=== PATIENT | female | born 1935 | race Caucasian/White ===

== ENCOUNTER 2020-12-29 20:55 | Inpatient (IN) | payer MEDICARE, OTHER ==
[~2020-12-29] VITALS: Ht 162.6 cm; Wt 72.1 kg
--- NOTE | 2020-12-29 20:57 | NUR ---
DO Steward in room to do MSE.
[2020-12-29] MEDS ORDERED: ONDANSETRON 4 MG/2 ML VIAL IV ONE (21:15)
[2020-12-29] MEDS ORDERED: IV NORMAL SALINE 250 ML BAG IV ONE (21:15)
[2020-12-29] MEDS ORDERED: ONDANSETRON 4 MG/2 ML VIAL ONE (21:32)
[2020-12-29 21:44] LABS: HEMATOCRIT 37.9 % (31.2-41.9); MEAN CORPUSCULAR HEMOGLOBIN 24.5 uug (24.7-32.8); PLATELET COUNT (AUTO) 375 K/uL (179-408)
[2020-12-29 21:58] LABS: CARBON DIOXIDE 20 mmol/L (21-32); CHLORIDE 99 mmol/L (98-107); CREATININE 3.3 mg/dL (0.6-1.3); GLUCOSE 155 mg/dL (74-106); POTASSIUM 4.8 mmol/L (3.5-5.1); UREA NITROGEN, BLOOD 59 mg/dL (7-18)
[2020-12-29 21:59] LABS: ALKALINE PHOSPHATASE 116 U/L (50-136); ASPARTATE AMINOTRANSFERASE 1672 U/L (15-37); BILIRUBIN,DIRECT 0.4 mg/dL (0.0-0.2); BILIRUBIN,TOTAL 0.9 mg/dL (0.2-1.0)
[2020-12-29 22:00] LABS: ALANINE AMINOTRANSFERASE 1279 U/L (14-59); CREATINE KINASE, TOTAL 164 U/L (26-192)
--- NOTE | 2020-12-29 22:00 | NUR ---
Patient desating to 89%, and bradycardic. MD Steward made aware. Patient placed on simple mask 10 LPM.
--- NOTE | 2020-12-29 22:05 | NUR ---
Checked lab results and noticed creatinine of patient is 3.3. Notified DO Bin of this since patient has order for CT with contrast.
--- NOTE | 2020-12-29 22:29 | NUR ---
Called for a REE room, Nursing traffic maintenance supervisor states to call CCU. SAM Mccann states it will be CCU 3.
--- NOTE | 2020-12-29 22:34 | NUR ---
software support technician in room to take patient down to CT scan.
--- NOTE | 2020-12-29 22:35 | NUR ---
Called [facility] medical group, Sheri DEGROOT paged.
--- NOTE | 2020-12-29 22:38 | NUR ---
Updated room number, CCU Overflow BED 5
[2020-12-29] MEDS ORDERED: FUROSEMIDE 40 MG/4 ML VIAL IV ONE (23:15)
[2020-12-29] MEDS ORDERED: CEFTRIAXONE 1 G in IV DEXTROSE 5% 50 ML IV ONE (23:15)
[2020-12-29] MEDS ORDERED: AZITHROMYCIN IV 500 MG in IV DEXTROSE 5% 250 ML IV ONE (23:15)
[2020-12-29] MEDS ORDERED: DEXAMETHASONE SOD PHOSPHATE 4 MG INJ IV ONE (23:15)
--- NOTE | 2020-12-29 23:15 | NUR ---
Patient requesting to use commode. KHAI Marrero in room assisting patient.
--- NOTE | 2020-12-29 23:19 | NUR ---
[facility] medical group called again, pending call back from ZANE Du.
[2020-12-29] MEDS ORDERED: DEXAMETHASONE SOD PHOSPHATE 4 MG INJ ONE (23:32)
[2020-12-29] MEDS ORDERED: AZITHROMYCIN 500MG/ D5W 250ML IVPB **ER PYXIS ONLY IV ONE (23:33)
[2020-12-29] MEDS ORDERED: CEFTRIAXONE /D5W 50ML IVPB **ER PYXIS IV ONE (23:33)
[2020-12-29] MEDS ORDERED: FUROSEMIDE 20 MG/2 ML VIAL ONE (23:34)
--- NOTE | 2020-12-30 00:05 | NUR ---
MD Hunter paged and connected to DO ClearFlow.
--- NOTE | 2020-12-30 00:22 | NUR ---
Report given to SAM Rodriguez.
[2020-12-30] MEDS ORDERED: MAGNESIUM HYDROXIDE 30 ML LIQUID UDC PO PRN (00:30)
[2020-12-30] MEDS ORDERED: ONDANSETRON 4 MG/2 ML VIAL IV PRN (00:30)
[2020-12-30] MEDS ORDERED: Z GUARD REMEDY PASTE 57 GM TUBE TOP PRN (00:30)
[2020-12-30 00:36] LABS: *BILIRUBIN,URIN NEGATIVE (NEGATIVE); *BLOOD, URINE NEGATIVE (NEGATIVE); *COLOR,URINE YELLOW (YELLOW); *KETONES,URINE NEGATIVE (NEGATIVE); *UROBILINOGEN,URINE 0.2 E.U./dl (NORMAL); LEUKOCYTE ESTERASE ,URINE TRACE (NEGATIVE); NITRITE, URINE NEGATIVE (NEGATIVE); UGLUCOSE NEGATIVE (NEGATIVE)
[2020-12-30] MEDS ORDERED: FURO80TA87 PO (00:39)
[2020-12-30] MEDS ORDERED: ROSU10TA2 PO (00:39)
[2020-12-30] MEDS ORDERED: LEVO50TA PO (00:39)
[2020-12-30] MEDS ORDERED: POTA10CA43 PO (00:39)
[2020-12-30] MEDS ORDERED: HYDR100T27 PO (00:39)
[2020-12-30] MEDS ORDERED: CLON0.5T4 PO (00:39)
[2020-12-30] MEDS ORDERED: AMIO200T5 PO (00:39)
[2020-12-30] MEDS ORDERED: CLON1PAT2 TD (00:39)
[2020-12-30] MEDS ORDERED: CA C1TAB71 PO (00:39)
[2020-12-30] MEDS ORDERED: ESCI10TA PO (00:39)
[2020-12-30] MEDS ORDERED: METF500T PO (00:39)
[2020-12-30] MEDS ORDERED: ISOS30TA86 PO (00:39)
[2020-12-30] MEDS ORDERED: METO-356 PO (00:39)
[2020-12-30] MEDS ORDERED: UMEC62.5 IH (00:39)
[2020-12-30] MEDS ORDERED: APIX5TAB PO (00:39)
[2020-12-30 00:51] LABS: *CLARITY,URINE HAZY (CLEAR)
[2020-12-30 01:16] LABS: BACTERIA,URINE FEW /HPF (NONE SEEN); RBC,URINE 0-3 /HPF (0-3); SQUAMOUS EPITHELIAL CELL,UR MODERATE /HPF (NONE SEEN)
--- NOTE | 2020-12-30 01:30 | NUR ---
Level of care switched from REE to Telemetry. Called for room for tele, SAM Whittington states they will call back with room number.
--- NOTE | 2020-12-30 02:48 | NUR ---
Report given to SAM Holder.
--- NOTE | 2020-12-30 03:58 | NUR ---
Pt. admitted to telemetry room 314, under care of Dr. Hunter Belongs List completed
[2020-12-30 04:58] VITALS: BP 131/61
--- NOTE | 2020-12-30 06:02 | NUR ---
Pt arrived on unit at 0405H in stable condition. No distress noted. On 10L simple mask tolerating well, sating at 97%. SB on monitor. Able to make needs known. IV site not patent, reinserted 20g on left AC. Safety and comfort provided. Covid-[address] No other issues or concerns at this time, will endorse to day shift.
[2020-12-30] MEDS: PANTOPRAZOLE SODIUM 40 MG TABLET.DR PO SCH (06:33)
[2020-12-30] MEDS: IV NS 1000 ML 1,000 ML IV PRN (06:52)
--- NOTE | 2020-12-30 08:00 | NUR ---
Pt in isolation room for positive covid 19 rapid test. Pt currently on 10 lit on mask with 100% saturation. Will attempt to taper down on o2 as able. No cough noted. Pt's lungs diminished lower lobes. L ac 20 gauge with NS infusing as ordered without any s/s of infiltration. Applied ICE on left rib area for pain management. Aspiration precaution implemented. Call light is within reach.
[2020-12-30 08:13] LABS: *BILIRUBIN,URIN NEGATIVE (NEGATIVE); *BLOOD, URINE NEGATIVE (NEGATIVE); *CLARITY,URINE CLEAR (CLEAR); *COLOR,URINE YELLOW (YELLOW); *KETONES,URINE NEGATIVE (NEGATIVE); *UROBILINOGEN,URINE 0.2 E.U./dl (NORMAL); LEUKOCYTE ESTERASE ,URINE 1+ (NEGATIVE); NITRITE, URINE NEGATIVE (NEGATIVE); UGLUCOSE NEGATIVE (NEGATIVE)
[2020-12-30 08:32] LABS: BACTERIA,URINE NONE SEEN /HPF (NONE SEEN); MUCUS,URINE FEW /LPF (0-FEW); RBC,URINE 0-3 /HPF (0-3); SQUAMOUS EPITHELIAL CELL,UR FEW /HPF (NONE SEEN); URINE AMORPHOUS URATE FEW /HPF
[2020-12-30 08:40] LABS: *CREATININE,URINE 31.2 mg/dL (30-125); *URINE TOTAL PROTEIN RANDOM 19.4 mg/dL (<150/24HR)
[2020-12-30] MEDS: DEXAMETHASONE SOD PHOSPHATE 4 MG INJ IV SCH (08:40)
[2020-12-30] MEDS ORDERED: HEPARIN SODIUM,PORCINE 5,000 UNITS/ML VIAL IV SCH (09:00)
[2020-12-30] MEDS ORDERED: ISOSORBIDE MONONITRATE 30 MG TAB.SR.24H PO SCH (09:30)
--- NOTE | 2020-12-30 10:00 | NUR ---
PT seen by DR Velasco and DR grimaldo. New orders received and carried out. New order received for LIDODERM patch on Left rib for pain management will apply when verified by pharmacy and medications availability. 02 tapered down to 5lit via mask with saturation of 97%. Call light is within reach. PT had good appetite for breakfast.
[2020-12-30] MEDS: LIDOCAINE 5% PATCH TD SCH (10:11)
--- NOTE | 2020-12-30 11:00 | NUR ---
Spoke with ALEC [phone] here to visit pt. Per hospital policy notified daughter that due to covid 19 she cannot visit pt. Gave Dr Edge and DR grimaldo phone numbers per Daughters request.
[2020-12-30 11:50] VITALS: BP 157/58
--- NOTE | 2020-12-30 12:00 | NUR ---
Sent PCR covid test done and sent to lab. Per veterinary surgery technician specimen will be picked up @ 8pm and processed. .
[2020-12-30] MEDS ORDERED: HEPARIN SODIUM,PORCINE 5,000 UNITS/ML VIAL SQ SCH (13:00)
[2020-12-30 15:55] VITALS: BP 134/54
--- NOTE | 2020-12-30 17:45 | NUR ---
Jeanine daughter called in spoke with charge nurse and stating that her mom is falling off the bed. Checked pt with SPARES SCHEDULER pt was still in bed and bed alarm buzzing. Pt was positioned sideways in bed attempting to get oob. IV intact. repositioned pt. Turned bed alarm on again. Set up pt for dinner. [id number] Called Back daughter and notified that pt did not fall.
[2020-12-30] MEDS: METOPROLOL SUCCINATE XL 25 MG TAB.SR.24H PO SCH (18:18)
[2020-12-30] MEDS: CLONAZEPAM 0.5 MG TABLET PO SCH (18:19)
--- NOTE | 2020-12-30 19:30 | NUR ---
RECEIVED PT AWAKE, ALERT AND ORIENTEDX3. PT IN NO ACUTE DISTRESS. IV INTACT. PT ON 4L OXYGEN NASAL CANNULA. SAFETY AND COMFORT PROVIDED. WILL CONTINUE TO MONITOR.
[2020-12-30 20:21] VITALS: BP 139/69
[2020-12-30] MEDS: ACETAMINOPHEN 325 MG TABLET PO PRN (20:57)
[2020-12-30] MEDS: APIXABAN 2.5 MG TABLET PO SCH (20:57)
[2020-12-30] MEDS: DOXYCYCLINE HYCLATE IV 100 MG in IV DEXTROSE 5% 100 ML IV SCH (20:58)
[2020-12-30] MEDS ORDERED: CEFTRIAXONE 1 G in IV DEXTROSE 5% 50 ML IV SCH (21:00)
[2020-12-30] MEDS ORDERED: AZITHROMYCIN IV 500 MG in IV DEXTROSE 5% 250 ML IV SCH (21:00)
--- NOTE | 2020-12-30 22:15 | NUR ---
NORCO 5-325MG Q6HPRN WAS ORDERED FOR PT BY DR. OLGUIN.
[2020-12-30] MEDS: HYDROCODONE/APAP 5-325MG TABLET PO PRN (22:57)
[2020-12-30] MEDS: CEFTRIAXONE 1 G in IV DEXTROSE 5% 50 ML IV SCH (22:57)
[2020-12-31 00:09] VITALS: BP 145/61
[2020-12-31] MEDS ORDERED: AZITHROMYCIN IV 500 MG in IV DEXTROSE 5% 250 ML IV SCH (01:00)
[2020-12-31 04:21] VITALS: BP 135/57
--- NOTE | 2020-12-31 04:22 | NUR ---
AT 2056H TYLENOL PRN 650 MG GIVEN FOR PT FOR PAIN. PT TOLERATED IT WELL. AT 2256H NORCO 5-325MG PRN WAS GIVEN FOR PT FOR PAIN. PT TOLERATED IT WELL. PT VITAL SIGNS STABLE. WILL CONTINUE TO MONITOR.
[2020-12-31] MEDS: IV NS 1000 ML 1,000 ML IV PRN ×2 (05:09→21:02)
[2020-12-31] MEDS: ACETAMINOPHEN 325 MG TABLET PO PRN (05:27)
[2020-12-31 06:09] LABS: HEMATOCRIT 32.8 % (31.2-41.9); MEAN CORPUSCULAR HEMOGLOBIN 24.3 uug (24.7-32.8); MEAN CORPUSCULAR VOLUME 77.8 fL (75.5-95.3); PLATELET COUNT (AUTO) 270 K/uL (179-408)
[2020-12-31] MEDS: PANTOPRAZOLE SODIUM 40 MG TABLET.DR PO SCH (06:19)
[2020-12-31] MEDS: LEVOTHYROXINE SODIUM 50 MCG TABLET PO SCH (06:19)
--- NOTE | 2020-12-31 06:21 | NUR ---
PT SLEPT INTERMITTENTLY. PT IN NO ACUTE DISTRESS. PT ON 3L NASAL CANNULA ON 96% OXYGEN SATURATION. AT 0527H TYLENOL PRN GIVEN FOR PT PAIN. PRESCRIBED MEDICATION GIVEN AND PT TOLERATED IT WELL. IV INTACT. ALL NEEDS ARE MET. SAFETY AND COMFORT PROVIDED. WILL ENDORSE TO INCOMING NURSE FOR CONTINUITY OF CARE.
[2020-12-31 06:51] LABS: THYROID STIMULATING HORMONE 1.061 mIU/mL (0.358-3.740)
[2020-12-31 06:52] LABS: ALANINE AMINOTRANSFERASE 987 U/L (14-59); ALKALINE PHOSPHATASE 104 U/L (50-136); ASPARTATE AMINOTRANSFERASE 640 U/L (15-37); BILIRUBIN,DIRECT 0.2 mg/dL (0.0-0.2); BILIRUBIN,TOTAL 0.5 mg/dL (0.2-1.0); CARBON DIOXIDE 21 mmol/L (21-32); CHLORIDE 106 mmol/L (98-107); CHOLESTEROL 139 mg/dL (<200); CREATININE 2.7 mg/dL (0.6-1.3); GLUCOSE 154 mg/dL (74-106); HDL CHOLESTEROL 71 mg/dL (40-60); MAGNESIUM 2.5 mg/dL (1.8-2.4); PHOSPHOROUS 4.9 mg/dL (2.5-4.9); POTASSIUM 3.9 mmol/L (3.5-5.1); TOTAL PROTEIN, SERUM 5.6 g/dL (6.4-8.2); TRIGLYCERIDES 81 MG/DL (30-150); UREA NITROGEN, BLOOD 66 mg/dL (7-18)
[2020-12-31 07:16] LABS: CREATINE KINASE, TOTAL 204 U/L (26-192)
--- NOTE | 2020-12-31 07:30 | NUR ---
Received awake, alert and responsive. In no acute distress. On 3 Lpm via nc tolerated. No sob. Spo2 noted 95%. Denies pain. IV intact. Patient is comfortable. Bed is low and locked. Call light in reach. Will continue to monitor.
[2020-12-31 08:23] LABS: ABG BASE EXCESS -3.1 mmol/L; ABG HCO3 21.5 mmol/L; ABG PCO2 36.7 mmHg (35.0-45.0); ABG PH 7.385 (7.350-7.450); ABG PO2 86.1 mmHg (75.0-100.0); ABG SITE RIGHT RADIAL; ABG TOTAL HEMOGLOBIN 11.9 G/dL (12.0-16.0); COHb 1.7 % (0.5-1.5); MetHb 0.3 % (0.0-1.5); O2Hb 94.6 % (94.0-97.0); VENT MODE Nasal Cannula
[2020-12-31] MEDS: DEXAMETHASONE SOD PHOSPHATE 4 MG INJ IV SCH (08:33)
[2020-12-31] MEDS: APIXABAN 2.5 MG TABLET PO SCH ×2 (08:35→21:37)
[2020-12-31] MEDS: AMIODARONE HCL 200 MG TABLET PO SCH (08:36)
[2020-12-31] MEDS: DOXYCYCLINE HYCLATE IV 100 MG in IV DEXTROSE 5% 100 ML IV SCH ×2 (08:36→21:00)
[2020-12-31] MEDS: METOPROLOL SUCCINATE XL 25 MG TAB.SR.24H PO SCH ×2 (08:36→16:58)
[2020-12-31] MEDS: CLONAZEPAM 0.5 MG TABLET PO SCH ×2 (08:36→16:57)
[2020-12-31] MEDS: LIDOCAINE 5% PATCH TD SCH (08:37)
[2020-12-31] MEDS ORDERED: ESCITALOPRAM OXALATE 10 MG TABLET PO ONE (11:00)
[2020-12-31 16:03] VITALS: BP 132/57
--- NOTE | 2020-12-31 18:48 | NUR ---
Resting in bed, watching tv. In no acute distress. Remains on 3Lpm via nasal cannula spo2 noted 98%. IV intact and patent, hydration ongoing. No s/sx of pain. Safety and fall precautions maintained. Patient is comfortable.
--- NOTE | 2020-12-31 20:00 | NUR ---
Patient alert oriented, no sob no chest pain. Patient on tele monitor sinus suhas 1st degree av block. Patient has no complain of pain at this time, speak [place] daughter able to interpret for the patient via telephone. Patient remains droplet precautions cont to monitor.
[2020-12-31 20:42] VITALS: BP 134/50
[2020-12-31] MEDS: DOCUSATE SODIUM 100 MG CAPSULE PO SCH (21:01)
[2020-12-31] MEDS: CEFTRIAXONE 1 G in IV DEXTROSE 5% 50 ML IV SCH (22:27)
[2021-01-01 00:39] VITALS: BP 132/60
[2021-01-01 04:55] VITALS: BP 154/64
[2021-01-01 06:07] LABS: HEMATOCRIT 33.1 % (31.2-41.9); MEAN CORPUSCULAR HEMOGLOBIN 24.1 uug (24.7-32.8); MEAN CORPUSCULAR VOLUME 77.9 fL (75.5-95.3); PLATELET COUNT (AUTO) 232 K/uL (179-408)
[2021-01-01] MEDS: PANTOPRAZOLE SODIUM 40 MG TABLET.DR PO SCH (06:11)
[2021-01-01] MEDS: LEVOTHYROXINE SODIUM 50 MCG TABLET PO SCH (06:11)
[2021-01-01 06:44] LABS: ALANINE AMINOTRANSFERASE 830 U/L (14-59); ALKALINE PHOSPHATASE 105 U/L (50-136); ASPARTATE AMINOTRANSFERASE 325 U/L (15-37); BILIRUBIN,DIRECT 0.2 mg/dL (0.0-0.2); BILIRUBIN,TOTAL 0.5 mg/dL (0.2-1.0); CARBON DIOXIDE 23 mmol/L (21-32); CHLORIDE 107 mmol/L (98-107); FERRITIN 90 ng/mL (8-252); GLUCOSE 142 mg/dL (74-106); LACTATE DEHYDROGENASE 223 U/L (81-234); MAGNESIUM 2.3 mg/dL (1.8-2.4); PHOSPHOROUS 3.7 mg/dL (2.5-4.9); POTASSIUM 4.5 mmol/L (3.5-5.1); TOTAL PROTEIN, SERUM 5.8 g/dL (6.4-8.2); UREA NITROGEN, BLOOD 61 mg/dL (7-18)
--- NOTE | 2021-01-01 06:45 | NUR ---
Patient alert but forgetful no sob no chest pain. Patient on tele monitor sinus suhas with 1st degree block, patient remain on isolation, cont to monitor.
[2021-01-01] MEDS: DOCUSATE SODIUM 100 MG CAPSULE PO SCH ×2 (08:53→20:32)
[2021-01-01] MEDS: CLONAZEPAM 0.5 MG TABLET PO SCH ×2 (08:53→17:01)
[2021-01-01] MEDS: AMLODIPINE 5 MG TABLET PO SCH ×2 (08:53→20:32)
[2021-01-01] MEDS: DEXAMETHASONE SOD PHOSPHATE 4 MG INJ IV SCH (08:53)
[2021-01-01] MEDS: APIXABAN 2.5 MG TABLET PO SCH ×2 (08:54→20:33)
[2021-01-01] MEDS: AMIODARONE HCL 200 MG TABLET PO SCH (08:56)
[2021-01-01] MEDS: METOPROLOL SUCCINATE XL 25 MG TAB.SR.24H PO SCH (08:57)
[2021-01-01] MEDS: LIDOCAINE 5% PATCH TD SCH (08:57)
[2021-01-01] MEDS: IV 1/2NS 1000 ML 1,000 ML IV PRN (09:11)
[2021-01-01] MEDS: DOXYCYCLINE HYCLATE IV 100 MG in IV DEXTROSE 5% 100 ML IV SCH ×2 (09:13→20:34)
--- NOTE | 2021-01-01 09:30 | NUR ---
Received report from SAM Nur
[2021-01-01] MEDS: ESCITALOPRAM OXALATE 10 MG TABLET PO SCH (11:27)
[2021-01-01 11:38] VITALS: BP 116/84
--- NOTE | 2021-01-01 11:52 | NUR ---
patient on 2Lpm via nc tolerating. Spo2 noted 97%. No acute distress. Will continue to monitor.
[2021-01-01 16:57] VITALS: BP 168/75
--- NOTE | 2021-01-01 19:00 | NUR ---
Awake and responsive. No acute distress. Denies pain. Due meds given and tolerated. No adverse reaction noted with atb use. Safety and fall precautions maintained. Kept comfortable. Needs attended. Endorsed for continuity of care.
[2021-01-01 20:35] VITALS: BP 149/78
[2021-01-01] MEDS: CEFTRIAXONE 1 G in IV DEXTROSE 5% 50 ML IV SCH (23:41)
[2021-01-02 00:10] VITALS: BP 155/55
[2021-01-02] MEDS: IV 1/2NS 1000 ML 1,000 ML IV PRN ×2 (03:56→22:58)
[2021-01-02] MEDS: BISACODYL 10 MG SUPP.RECT RC PRN (03:59)
[2021-01-02 04:53] VITALS: BP 132/63
[2021-01-02] MEDS: LEVOTHYROXINE SODIUM 50 MCG TABLET PO SCH (06:07)
[2021-01-02] MEDS: PANTOPRAZOLE SODIUM 40 MG TABLET.DR PO SCH (06:07)
--- NOTE | 2021-01-02 06:39 | NUR ---
PAtient slept well. No acute distress noted.On 02 at 2LPM via NC saturating well. Iv on left Fa patent and intact.Administered IV ATb.No a/r noted. IVf infusing well. Tolerated well.Denies pain at this time .VSS .will endorse to oncoming shift.
[2021-01-02 06:45] LABS: HEMATOCRIT 35.5 % (31.2-41.9); MEAN CORPUSCULAR HEMOGLOBIN 24.1 uug (24.7-32.8); MEAN CORPUSCULAR VOLUME 78.7 fL (75.5-95.3); PLATELET COUNT (AUTO) 249 K/uL (179-408)
[2021-01-02 07:06] LABS: ALANINE AMINOTRANSFERASE 677 U/L (14-59); ALKALINE PHOSPHATASE 113 U/L (50-136); ASPARTATE AMINOTRANSFERASE 149 U/L (15-37); BILIRUBIN,DIRECT 0.2 mg/dL (0.0-0.2); BILIRUBIN,TOTAL 0.5 mg/dL (0.2-1.0); CARBON DIOXIDE 24 mmol/L (21-32); CHLORIDE 108 mmol/L (98-107); CREATININE 1.6 mg/dL (0.6-1.3); GLUCOSE 132 mg/dL (74-106); MAGNESIUM 2.2 mg/dL (1.8-2.4); PHOSPHOROUS 3.2 mg/dL (2.5-4.9); POTASSIUM 4.2 mmol/L (3.5-5.1); TOTAL PROTEIN, SERUM 6.3 g/dL (6.4-8.2); UREA NITROGEN, BLOOD 49 mg/dL (7-18)
--- NOTE | 2021-01-02 08:00 | NUR ---
RECEIVED CHANGE OF SHIFT REPORT. PT ON COVID ISOLATION PRECAUTIONS, PT ON 2L O2 VIA NC, SATURATING AT 95%, NO SIGNS OF DISTRESS, NO LABORED BREATHING. PT INDONESIAN SPEAKING, PT HAS RED SCABS ON THE ISMA ARMS AND ON THE UPPER BACK AND SHOULDERS. IV ON THE LEFT FA 20G RUNNING 1/2 NS AT 70ML/HR. BED LOW AND LOCKED, CALL LIGHT WTIHIN REACH, PAIN MEDICATION GIVEN ORDERED FOR PAIN. WILL CONTINUE WITH PLAN OF CARE.
[2021-01-02] MEDS: HYDROCODONE/APAP 5-325MG TABLET PO PRN (08:11)
[2021-01-02] MEDS: CLONAZEPAM 0.5 MG TABLET PO SCH ×2 (08:20→17:37)
[2021-01-02] MEDS: AMLODIPINE 5 MG TABLET PO SCH ×2 (08:20→20:19)
[2021-01-02] MEDS: DOCUSATE SODIUM 100 MG CAPSULE PO SCH ×2 (08:21→20:21)
[2021-01-02] MEDS: LIDOCAINE 5% PATCH TD SCH (08:21)
[2021-01-02] MEDS: METOPROLOL SUCCINATE XL 25 MG TAB.SR.24H PO SCH (08:21)
[2021-01-02] MEDS: ESCITALOPRAM OXALATE 10 MG TABLET PO SCH (08:21)
[2021-01-02] MEDS: DEXAMETHASONE SOD PHOSPHATE 4 MG INJ IV SCH (08:22)
[2021-01-02] MEDS: APIXABAN 2.5 MG TABLET PO SCH ×2 (08:28→20:27)
[2021-01-02] MEDS: DOXYCYCLINE HYCLATE IV 100 MG in IV DEXTROSE 5% 100 ML IV SCH (08:29)
[2021-01-02] MEDS: hydrALAZINE HCL 50 MG TABLET PO SCH ×2 (11:42→20:21)
[2021-01-02 11:46] VITALS: BP 159/72
[2021-01-02 15:28] VITALS: BP 156/68
--- NOTE | 2021-01-02 18:43 | NUR ---
pt in bed, sleeping, easily arousable. pt is [place], hearing aids at bedside, daughter will bring batteries for hearing aids tomorrow 01/03/21. pt daughter stated the pt was hallucinating, MD made aware, MD to call daughter. pt on 2L o2 via NC, O2 dependent at home. pt has Left FA20g, voids via bedside commode. last Bm 01/02/21. bed low and locked, call light within reach, will endorse to oncoming nurse.
--- NOTE | 2021-01-02 19:30 | NUR ---
Patient report received. Alert and oriented x 2. Patient only speaks Turkmen. Patient is comfortable on 2L of oxygen, saturating at 95%. No signs or reports of shortness of breath at this time. On TELE, sinus suhas. Patient has bruising and scabs on right knee and right wrist. Patient has an IV on left forearm 22g. No signs of distress at this time. No reports of pain. Safety and fall precautions in place. Call light within reach.
[2021-01-02] MEDS: DOXYCYCLINE HYCLATE 100 MG TABLET PO SCH (20:19)
[2021-01-02 20:20] VITALS: BP 148/58
[2021-01-02 21:06] LABS: M-SPIKE Not Observed
[2021-01-02 21:08] LABS: ALBUMIN 2.8 LOW; ALPHA-1-GLOBULIN 0.3
[2021-01-02 21:09] LABS: ALPHA-2-GLOBULIN 0.8; BETA GLOBULIN 0.9; GAMMA GLOBULIN 0.7; GLOBULIN, TOTAL 2.8
[2021-01-02] MEDS: CEFTRIAXONE 1 G in IV DEXTROSE 5% 50 ML IV SCH (22:58)
[2021-01-03 00:13] VITALS: BP 160/55
[2021-01-03] MEDS: hydrALAZINE HCL 25 MG TABLET PO PRN ×2 (04:32→14:58)
[2021-01-03 04:34] VITALS: BP 170/71
[2021-01-03] MEDS: LEVOTHYROXINE SODIUM 50 MCG TABLET PO SCH (06:13)
[2021-01-03] MEDS: PANTOPRAZOLE SODIUM 40 MG TABLET.DR PO SCH (06:13)
[2021-01-03 06:28] LABS: MEAN CORPUSCULAR HEMOGLOBIN 24.5 uug (24.7-32.8); MEAN CORPUSCULAR VOLUME 78.7 fL (75.5-95.3); PLATELET COUNT (AUTO) 264 K/uL (179-408)
[2021-01-03 06:48] LABS: ALANINE AMINOTRANSFERASE 522 U/L (14-59); ALKALINE PHOSPHATASE 105 U/L (50-136); ASPARTATE AMINOTRANSFERASE 72 U/L (15-37); BILIRUBIN,DIRECT 0.2 mg/dL (0.0-0.2); BILIRUBIN,TOTAL 0.6 mg/dL (0.2-1.0); CARBON DIOXIDE 26 mmol/L (21-32); CHLORIDE 109 mmol/L (98-107); CREATININE 1.4 mg/dL (0.6-1.3); GLUCOSE 110 mg/dL (74-106); PHOSPHOROUS 2.6 mg/dL (2.5-4.9); POTASSIUM 4.6 mmol/L (3.5-5.1); TOTAL PROTEIN, SERUM 6.3 g/dL (6.4-8.2); UREA NITROGEN, BLOOD 44 mg/dL (7-18)
--- NOTE | 2021-01-03 07:23 | NUR ---
Patient awake, alert and oriented x 2. Slept well through the night. No complaints of pain at this time. Patient sinus suhas on TELE. Comfortable on 2 L of oxygen. Able to use the commode. No signs of distress at this time. Safety and fall precautions in place. Call light within reach.
[2021-01-03] MEDS: HYDROCODONE/APAP 5-325MG TABLET PO PRN ×2 (08:44→23:31)
[2021-01-03] MEDS ORDERED: FUROSEMIDE 20 MG/2 ML VIAL IV ONE (09:30)
[2021-01-03] MEDS: APIXABAN 2.5 MG TABLET PO SCH ×2 (09:48→21:50)
[2021-01-03] MEDS: CLONAZEPAM 0.5 MG TABLET PO SCH ×2 (09:55→17:12)
[2021-01-03] MEDS: DEXAMETHASONE SOD PHOSPHATE 4 MG INJ IV SCH (09:55)
[2021-01-03] MEDS: DOXYCYCLINE HYCLATE 100 MG TABLET PO SCH ×2 (09:55→21:50)
[2021-01-03] MEDS: ESCITALOPRAM OXALATE 10 MG TABLET PO SCH (09:55)
[2021-01-03] MEDS: LIDOCAINE 5% PATCH TD SCH (09:55)
[2021-01-03] MEDS: AMLODIPINE 5 MG TABLET PO SCH ×2 (10:01→21:49)
[2021-01-03] MEDS: hydrALAZINE HCL 50 MG TABLET PO SCH ×2 (10:02→21:49)
[2021-01-03] MEDS: DOCUSATE SODIUM 100 MG CAPSULE PO SCH ×2 (10:02→21:50)
[2021-01-03 11:30] VITALS: BP 167/73
[2021-01-03 15:37] VITALS: BP 169/70
--- NOTE | 2021-01-03 19:30 | NUR ---
Received pt in bed, awake and verbally responsive, able to make needs known. On oxygen at 2LPM, no s/s of respiratory distress. Pt denies any pain or discomfort. IVF infusing well on R wrist. Pt is on isolation for COVID. Safety measures initiated, call light within reach, will continue to monitor.
[2021-01-03] MEDS: IV 1/2NS 1000 ML 1,000 ML IV PRN (19:36)
[2021-01-03 20:40] VITALS: BP_SYST 165; BP_DIAS 52; BP_DIAS 66
[2021-01-03] MEDS: METOPROLOL SUCCINATE XL 25 MG TAB.SR.24H PO SCH (21:00)
[2021-01-03] MEDS: CEFTRIAXONE 1 G in IV DEXTROSE 5% 50 ML IV SCH (23:27)
[2021-01-04 00:30] VITALS: BP 153/63
[2021-01-04 04:40] VITALS: BP 154/66
[2021-01-04] MEDS: PANTOPRAZOLE SODIUM 40 MG TABLET.DR PO SCH (06:39)
[2021-01-04] MEDS: LEVOTHYROXINE SODIUM 50 MCG TABLET PO SCH (06:39)
--- NOTE | 2021-01-04 07:11 | NUR ---
Slept through the night, tolerated due medications, no significant change in condition noted. Safety measures maintained at all times, all needs attended to and met.
--- NOTE | 2021-01-04 08:00 | NUR ---
received report on pt, pt on 2L O2 NC, no signs of distress, no reports of pain at this time, call light within reach, bed low and locked. pt on tele monitor, NSR, on isolation for COVID-19, pt voids via bedside commode. IV access on the right hand running 1/2 NS at 75. will continue with plan of care.
[2021-01-04] MEDS: APIXABAN 2.5 MG TABLET PO SCH ×2 (09:34→20:42)
[2021-01-04] MEDS: DEXAMETHASONE SOD PHOSPHATE 4 MG INJ IV SCH (09:40)
[2021-01-04] MEDS: ESCITALOPRAM OXALATE 10 MG TABLET PO SCH (09:41)
[2021-01-04] MEDS: DOCUSATE SODIUM 100 MG CAPSULE PO SCH ×2 (09:41→20:38)
[2021-01-04] MEDS: ACETAMINOPHEN 325 MG TABLET PO PRN (09:41)
[2021-01-04] MEDS: DOXYCYCLINE HYCLATE 100 MG TABLET PO SCH ×2 (09:41→20:39)
[2021-01-04] MEDS: CLONAZEPAM 0.5 MG TABLET PO SCH ×2 (09:41→17:30)
[2021-01-04] MEDS: ENSURE ENLIVE (VAN) 240 ML LIQUID PO SCH (09:42)
[2021-01-04] MEDS: hydrALAZINE HCL 50 MG TABLET PO SCH ×3 (09:46→17:31)
[2021-01-04] MEDS: METOPROLOL SUCCINATE XL 25 MG TAB.SR.24H PO SCH ×2 (09:47→20:43)
[2021-01-04] MEDS: AMLODIPINE 5 MG TABLET PO SCH ×2 (09:47→20:38)
[2021-01-04] MEDS: LIDOCAINE 5% PATCH TD SCH (09:47)
--- NOTE | 2021-01-04 11:20 | NUR ---
pt dcd from isolation, will continue to monitor
[2021-01-04 12:00] VITALS: BP 160/67
--- NOTE | 2021-01-04 12:47 | NUR ---
pt second PCR came in with a negative result, orders to discontinue isolation precautions. will continue to monitor.
[2021-01-04] MEDS: IV 1/2NS 1000 ML 1,000 ML IV PRN (13:08)
[2021-01-04 16:00] VITALS: BP 173/76
--- NOTE | 2021-01-04 19:30 | NUR ---
Received pt in bed, sleepy but easily arousable. No s/s of respiratory distress. Denies any pain or discomfort. IVF infusing well. OFF of isolation. Safety measures initiated, call light within reach.
[2021-01-04 20:00] VITALS: BP 144/55
[2021-01-04] MEDS: CEFTRIAXONE 1 G in IV DEXTROSE 5% 50 ML IV SCH (22:43)
[2021-01-04] MEDS: HYDROCODONE/APAP 5-325MG TABLET PO PRN (23:28)
[2021-01-04] MEDS: BISACODYL 10 MG SUPP.RECT RC PRN (23:28)
[2021-01-05] VITALS: BP 167/68
[2021-01-05] MEDS: ENALAPRILAT DIHYDRATE 1.25 MG/1 ML VIAL IV PRN (00:41)
[2021-01-05 04:00] VITALS: BP 154/61
[2021-01-05] MEDS: hydrALAZINE HCL 25 MG TABLET PO PRN ×2 (05:26→21:06)
[2021-01-05] MEDS: PANTOPRAZOLE SODIUM 40 MG TABLET.DR PO SCH (06:11)
[2021-01-05] MEDS: LEVOTHYROXINE SODIUM 50 MCG TABLET PO SCH (06:11)
[2021-01-05 06:38] LABS: HEMATOCRIT 34.5 % (31.2-41.9); MEAN CORPUSCULAR HEMOGLOBIN 24.6 uug (24.7-32.8); MEAN CORPUSCULAR VOLUME 77.6 fL (75.5-95.3); PLATELET COUNT (AUTO) 260 K/uL (179-408)
[2021-01-05 06:50] LABS: CREATININE 1.2 mg/dL (0.6-1.3); MAGNESIUM 1.8 mg/dL (1.8-2.4); PHOSPHOROUS 2.8 mg/dL (2.5-4.9); POTASSIUM 4.1 mmol/L (3.5-5.1)
--- NOTE | 2021-01-05 07:00 | NUR ---
Pt slept intermittently through the night. Pt tolerated medications well. Scheduled and PRN BP medications administered as ordered. Safety measures maintained at all times. Received a call this morning from daughter Juliana. She was asking how her mother is because pt called her saying " You have to come and visit me and say your goodbye. I'm dying. They changed me to another room and gave me an injection and medications." Explained well to the daughter the situation. The injection was from the laboratory staff getting her blood samples for lab orders from the Dr. The medications were her AM meds and we transferred her to another room because she is Dc'd from isolation. Daughter verbalized understanding and asks if she can visit today. Told her to call again during day shift to confirm visitation privileges. Will endorse to day shift nurse regarding change in patient's condition.
--- NOTE | 2021-01-05 08:00 | NUR ---
Ptalert and oriented x 4. Jeanine daughter at bedside. Pt denies any c/o pain. pt on 02 @ 2liters. Fall precaution implemented. Bed alarm on. IV on right hand intact. IVF infusing as ordered. Pt has good appetite for breakfast. Pt denies any GODINEZ. AM meds given. Call light is within reach. Tele SNR.
[2021-01-05] MEDS ORDERED: CLONIDINE TTS 2 PATCH TD SCH (09:00)
[2021-01-05] MEDS: DOCUSATE SODIUM 100 MG CAPSULE PO SCH ×2 (09:34→21:03)
[2021-01-05] MEDS: DOXYCYCLINE HYCLATE 100 MG TABLET PO SCH (09:34)
[2021-01-05] MEDS: ENSURE ENLIVE (VAN) 240 ML LIQUID PO SCH (09:35)
[2021-01-05] MEDS: hydrALAZINE HCL 50 MG TABLET PO SCH ×3 (09:35→16:27)
[2021-01-05] MEDS: CLONAZEPAM 0.5 MG TABLET PO SCH ×2 (09:35→16:23)
[2021-01-05] MEDS: ESCITALOPRAM OXALATE 10 MG TABLET PO SCH (09:35)
[2021-01-05] MEDS: AMLODIPINE 5 MG TABLET PO SCH ×2 (09:35→21:04)
[2021-01-05] MEDS: APIXABAN 2.5 MG TABLET PO SCH ×2 (09:37→21:05)
[2021-01-05] MEDS: DEXAMETHASONE SOD PHOSPHATE 4 MG INJ IV SCH (09:37)
[2021-01-05] MEDS: METOPROLOL SUCCINATE XL 25 MG TAB.SR.24H PO SCH ×2 (09:39→21:00)
[2021-01-05] MEDS: LIDOCAINE 5% PATCH TD SCH (09:40)
[2021-01-05] MEDS ORDERED: FUROSEMIDE 20 MG/2 ML VIAL IV ONE (10:00)
--- NOTE | 2021-01-05 11:00 | NUR ---
d/c ivf as ordered. Kept HL on right hand. Pt denies any c/o pain.
[2021-01-05 12:00] VITALS: BP 142/56
[2021-01-05 16:00] VITALS: BP 124/52
--- NOTE | 2021-01-05 17:58 | NUR ---
Dr mills saw patient. Pt is in no acute distress. No new orders received. No fall noted this shift. fall precaution effective.
--- NOTE | 2021-01-05 19:20 | NUR ---
Received pt in bed, sleeping but arousable to name. Pt denies pain or discomfort. On oxygen at 2LPM via NC. No s/s of respiratory distress. Safety measures initiated, call light within reach, will continue to monitor.
[2021-01-05 20:12] VITALS: BP 154/57
[2021-01-06 00:15] VITALS: BP 168/64
[2021-01-06] MEDS: ENALAPRILAT DIHYDRATE 1.25 MG/1 ML VIAL IV PRN (01:17)
[2021-01-06 04:15] VITALS: BP 118/52
[2021-01-06] MEDS: PANTOPRAZOLE SODIUM 40 MG TABLET.DR PO SCH (06:05)
[2021-01-06] MEDS: LEVOTHYROXINE SODIUM 50 MCG TABLET PO SCH (06:05)
--- NOTE | 2021-01-06 06:26 | NUR ---
Pt in bed, slept through the night. Tolerated due medications. No significant change in condition noted the whole night. Assisted to the bathroom as needed. All needs attended to and met. Safety measures maintained at all times.
[2021-01-06 06:57] LABS: BILIRUBIN,DIRECT 0.2 mg/dL (0.0-0.2); BILIRUBIN,TOTAL 0.6 mg/dL (0.2-1.0); CREATININE 1.2 mg/dL (0.6-1.3); MAGNESIUM 1.8 mg/dL (1.8-2.4); TOTAL PROTEIN, SERUM 5.3 g/dL (6.4-8.2)
--- NOTE | 2021-01-06 07:30 | NUR ---
RECEIVED SITTING ON SIDE OF THE BED, IN NO ACUTE DISTRESS. NO SOB. ON 3 LPM VIA NC TOLERATED. IV INTACT. ENCOURAGED TO CALL WHEN IN NEED. PATIENT IS DOING SOME LEG EXERCISES AND NODDED. WILL CONTINUE TO MONITOR.
[2021-01-06 07:33] LABS: HEMATOCRIT 34.1 % (31.2-41.9); MEAN CORPUSCULAR VOLUME 77.8 fL (75.5-95.3); PLATELET COUNT (AUTO) 271 K/uL (179-408)
[2021-01-06] MEDS: METOPROLOL SUCCINATE XL 25 MG TAB.SR.24H PO SCH (09:00)
[2021-01-06] MEDS: APIXABAN 2.5 MG TABLET PO SCH (09:26)
[2021-01-06] MEDS: DOCUSATE SODIUM 100 MG CAPSULE PO SCH (09:26)
[2021-01-06] MEDS: ENSURE ENLIVE (VAN) 240 ML LIQUID PO SCH (09:27)
[2021-01-06] MEDS: CLONAZEPAM 0.5 MG TABLET PO SCH ×2 (09:27→17:17)
[2021-01-06] MEDS: AMLODIPINE 5 MG TABLET PO SCH (09:27)
[2021-01-06] MEDS: ESCITALOPRAM OXALATE 10 MG TABLET PO SCH (09:27)
[2021-01-06] MEDS: LIDOCAINE 5% PATCH TD SCH (09:29)
[2021-01-06] MEDS: hydrALAZINE HCL 50 MG TABLET PO SCH ×3 (09:34→17:17)
[2021-01-06] MEDS ORDERED: FUROSEMIDE 20 MG/2 ML VIAL IV ONE (10:30)
[2021-01-06 11:56] VITALS: BP 156/57
[2021-01-06] MEDS ORDERED: LABETALOL HCL 100 MG TABLET PO SCH (12:00)
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
[2021-01-06] MEDS ORDERED: MENT71OI TOP (15:42)
[2021-01-06] MEDS ORDERED: HYDR-3972 PO (15:42)
[2021-01-06] MEDS ORDERED: LABE100T15 PO (15:42)
[2021-01-06] MEDS ORDERED: Lactose-Free Food PO (15:42)
[2021-01-06] MEDS ORDERED: DOCU100C36 PO (15:42)
[2021-01-06] MEDS ORDERED: GLIM1TAB PO (15:42)
[2021-01-06] MEDS ORDERED: APIX2.5T PO (15:42)
[2021-01-06] MEDS ORDERED: LIDO30AD10 TD (15:42)
[2021-01-06] MEDS ORDERED: PANT40TA2 PO (15:42)
[2021-01-06] MEDS ORDERED: HYDR100T27 PO (15:42)
[2021-01-06] MEDS ORDERED: BISA10SU12 RC (15:42)
[2021-01-06] MEDS ORDERED: AMLO-212 PO (15:43)
[2021-01-06] MEDS ORDERED: GABA300C PO (15:43)
[2021-01-06] MEDS ORDERED: ACID1TAB4 PO (15:43)
[2021-01-06] MEDS ORDERED: FURO-152 PO (15:43)
[2021-01-06] MEDS ORDERED: ACET325T53 PO (15:43)
[2021-01-06 16:00] VITALS: BP 133/51
[2021-01-06 17:17] VITALS: BP 136/53
--- NOTE | 2021-01-06 17:40 | NUR ---
Inletter Ellen made aware by charge nurse of missing lower denture.
--- NOTE | 2021-01-06 17:52 | NUR ---
Patient is discharged to acute rehab unit. Alert and oriented, no acute distress. Dtr at bedside and is agreeable with plan of care. Patient is also agreeable. Denies pain or sob. On 2 Lpm via nc tolerated spo2 95%. Instructions relayed to dtr and patient, verbalized understanding. Skin check done noted intact. Patient is kept comfortable. Needs attended.
== END 2021-01-06 18:00 | DRG 682 ==
LOC: ER 20:57 → CCU 12-30 00:40 → TELE3 12-30 00:42
PROVIDERS: ADMIT Student in an Organized Health Care Education/Training Program; ATTEND Internal Medicine
DX: N17.0 Acute kidney failure with tubular necrosis (principal); E43 Unspecified severe protein-calorie malnutrition; G92 Toxic encephalopathy; J96.21 Acute and chronic respiratory failure with hypoxia; I50.33 Acute on chronic diastolic (congestive) heart failure; S22.42XA Multiple fractures of ribs, left side, initial encounter for closed fracture; E87.1 Hypo-osmolality and hyponatremia; E87.2 Acidosis; N39.0 Urinary tract infection, site not specified; I13.0 Hypertensive heart and chronic kidney disease with heart failure and stage 1 through stage 4 chronic kidney disease, or unspecified chronic kidney disease; J98.11 Atelectasis; W19.XXXA Unspecified fall, initial encounter; Y92.89 Other specified places as the place of occurrence of the external cause; E03.9 Hypothyroidism, unspecified; D25.9 Leiomyoma of uterus, unspecified; E27.8 Other specified disorders of adrenal gland; E86.1 Hypovolemia; F41.9 Anxiety disorder, unspecified; I44.0 Atrioventricular block, first degree; M19.90 Unspecified osteoarthritis, unspecified site; N18.9 Chronic kidney disease, unspecified; I25.10 Atherosclerotic heart disease of native coronary artery without angina pectoris; I48.0 Paroxysmal atrial fibrillation; I27.20 Pulmonary hypertension, unspecified; G89.29 Other chronic pain; F32.9 Major depressive disorder, single episode, unspecified; G31.84 Mild cognitive impairment of uncertain or unknown etiology; E78.5 Hyperlipidemia, unspecified; Z99.81 Dependence on supplemental oxygen; R74.01 Elevation of levels of liver transaminase levels; R91.8 Other nonspecific abnormal finding of lung field; E04.2 Nontoxic multinodular goiter; Z68.27 Body mass index [BMI] 27.0-27.9, adult; N13.9 Obstructive and reflux uropathy, unspecified; Z79.84 Long term (current) use of oral hypoglycemic drugs; Z79.01 Long term (current) use of anticoagulants; E11.22 Type 2 diabetes mellitus with diabetic chronic kidney disease; J44.9 Chronic obstructive pulmonary disease, unspecified; Z91.81 History of falling; Z20.822 Contact with and (suspected) exposure to COVID-19
CPT/HCPCS: 36415; 36600; 70030-TC; 70450; 71045; 71250; 72125; 83615; 83735; 83970; 84100; 84155; 84156; 84165; 84300; 84443; 85025; 85651; 85730; 86140; 86850; 86900; 86901; 87040; 87086; 93005; 93307; A4663; G0378; J0456; J0696; J1100; J1644; J1940; J2405; J3490; J7030; J7060; U0003

== ENCOUNTER 2021-01-06 18:17 | Inpatient (IN) | payer MEDICARE, OTHER ==
[~2021-01-06] VITALS: Ht 162.6 cm; Wt 68.0 kg
[~2021-01-06 18:17] MED LIST: ACET325T53 PO; ACID1TAB4 PO; AMIO200T5 PO; AMLO-212 PO; APIX2.5T PO; APIX5TAB PO; BISA10SU12 RC; CA C1TAB71 PO; CLON0.5T4 PO; CLON1PAT2 TD; DOCU100C36 PO; ESCI10TA PO; FURO-152 PO; FURO80TA87 PO; GABA300C PO; GLIM1TAB PO; HYDR-3972 PO; HYDR100T27 PO; ISOS30TA86 PO; LABE100T15 PO; LEVO50TA PO; LIDO30AD10 TD; Lactose-Free Food PO; MENT71OI TOP; METF500T PO; METO-356 PO; PANT40TA2 PO; POTA10CA43 PO; ROSU10TA2 PO; UMEC62.5 IH
[2021-01-06] MEDS ORDERED: Z GUARD REMEDY PASTE 57 GM TUBE TOP PRN ×2 (18:30)
[2021-01-06] MEDS ORDERED: BISACODYL 10 MG SUPP.RECT RC PRN (18:30)
[2021-01-06] MEDS ORDERED: ACETAMINOPHEN 325 MG TABLET PO PRN (18:30)
[2021-01-06] MEDS: APIXABAN 2.5 MG TABLET PO SCH (18:47)
[2021-01-06 20:00] VITALS: BP 108/45
[2021-01-06] MEDS: DOCUSATE SODIUM 100 MG CAPSULE PO SCH (20:42)
[2021-01-06] MEDS: AMLODIPINE 10 MG TABLET PO SCH (20:43)
[2021-01-06] MEDS: GABAPENTIN 300 MG CAPSULE PO SCH (20:44)
[2021-01-06] MEDS: LABETALOL HCL 100 MG TABLET PO SCH (20:58)
[2021-01-06] MEDS ORDERED: AMLODIPINE 5 MG TABLET PO SCH (21:00)
[2021-01-07 04:15] VITALS: BP 116/47
[2021-01-07] MEDS: APIXABAN 2.5 MG TABLET PO SCH ×2 (05:31→17:26)
[2021-01-07] MEDS: PANTOPRAZOLE SODIUM 40 MG TABLET.DR PO SCH (06:16)
[2021-01-07] MEDS: LEVOTHYROXINE SODIUM 50 MCG TABLET PO SCH (06:16)
[2021-01-07 08:00] VITALS: BP 169/65
[2021-01-07] MEDS: ENSURE ENLIVE (VAN) 240 ML LIQUID PO SCH (08:00)
--- NOTE | 2021-01-07 08:00 | NUR ---
Pt is in no acute distress. Pt alert and oriented x 4. PT denies any c/o pain. Bed alarm on for fall precaution. Noted bruising on ISMA AC 2nd blood draws . Small (akanksha sized) Bruised left knee . No edema noted. PT states "BALIT" PAIN in mongolian on left rib area -lidocaine patch applied. Pt on 02 2 liters with sat of 97%.
[2021-01-07] MEDS: ESCITALOPRAM OXALATE 10 MG TABLET PO SCH (08:36)
[2021-01-07] MEDS: hydrALAZINE HCL 50 MG TABLET PO SCH ×3 (08:36→17:29)
[2021-01-07] MEDS: GLIMEPIRIDE 2 MG TABLET PO SCH (08:36)
[2021-01-07] MEDS: ACIDOPHILUS/BULGARICUS CHEW TAB PO SCH ×2 (08:36→17:24)
[2021-01-07] MEDS: LABETALOL HCL 100 MG TABLET PO SCH ×2 (08:36→20:59)
[2021-01-07] MEDS: AMLODIPINE 10 MG TABLET PO SCH ×2 (08:37→20:59)
[2021-01-07] MEDS: CLONAZEPAM 0.5 MG TABLET PO SCH ×2 (08:37→17:24)
[2021-01-07] MEDS: DOCUSATE SODIUM 100 MG CAPSULE PO SCH ×2 (08:37→20:57)
[2021-01-07] MEDS: GABAPENTIN 300 MG CAPSULE PO SCH ×2 (08:37→20:57)
[2021-01-07] MEDS: FUROSEMIDE 20 MG TABLET PO SCH (08:37)
[2021-01-07] MEDS: LIDOCAINE 5% PATCH TD SCH (08:38)
[2021-01-07] MEDS: HYDROCODONE/APAP 5-325MG TABLET PO PRN (08:40)
[2021-01-07] MEDS ORDERED: Medication Not On Formulary EA (Glimepiride (Amaryl) 1 MG) PO SCH (09:00)
[2021-01-07] MEDS ORDERED: Medication Not On Formulary EA ([Lactose-Free Food] 240 ML) PO SCH (09:00)
--- NOTE | 2021-01-07 15:00 | NUR ---
PT 02 sat 86% on r/a at rest. Put pt back on 2 liter with sat of 98%. Continue to encourage pt to use IS x 10 reps WA for better lung expansion.
[2021-01-07 15:40] VITALS: BP 101/33
--- NOTE | 2021-01-07 18:00 | NUR ---
Pt tolerated physical therapy premedicating pt prior to therapy sessions. Pt o2 tapered down to 1 lit via n/c with o2 sat of 95%. Pt is in no acute distress. Pt has good appetite and able to feed herself with set up.
[2021-01-07 20:15] VITALS: BP 115/41
--- NOTE | 2021-01-07 23:30 | NUR ---
Received pt sleeping in bed. AAO x3-4 Belizean speaking. Spoke to pt in Belizean, able to make needs known. VSS on 1L of oxygen saturating at 93-94, no s/s of SOB noted. Encouraged pt to use incentive spirometer before going to bed. No acute distress noted. c/o of mild pain in left side. States " okay when not moving." Kept clean, dry and comfortable. Attended to all needs promptly. Due med given as ordered. Help labetalol HR 55. Both heels offloaded. Safety measures maintained. Call light and personal items within reach. Will continue to monitor.
[2021-01-08 04:46] VITALS: BP 126/53
[2021-01-08] MEDS: PANTOPRAZOLE SODIUM 40 MG TABLET.DR PO SCH (06:22)
[2021-01-08] MEDS: LEVOTHYROXINE SODIUM 50 MCG TABLET PO SCH (06:23)
[2021-01-08] MEDS: APIXABAN 2.5 MG TABLET PO SCH ×2 (06:23→17:30)
[2021-01-08 06:28] LABS: HEMATOCRIT 34.3 % (31.2-41.9); MEAN CORPUSCULAR HEMOGLOBIN 24.3 uug (24.7-32.8); MEAN CORPUSCULAR VOLUME 78.2 fL (75.5-95.3); PLATELET COUNT (AUTO) 241 K/uL (179-408)
[2021-01-08 06:45] LABS: CARBON DIOXIDE 28 mmol/L (21-32); CHLORIDE 111 mmol/L (98-107); CREATININE 1.4 mg/dL (0.6-1.3); GLUCOSE 85 mg/dL (74-106); MAGNESIUM 1.8 mg/dL (1.8-2.4); PHOSPHOROUS 3.8 mg/dL (2.5-4.9); UREA NITROGEN, BLOOD 36 mg/dL (7-18)
--- NOTE | 2021-01-08 07:40 | NUR ---
Patient received in bed, alert and oriented x4 and Maldivian speaking. Patient on 1L O2 via NC with no SOB or difficulties breathing; O2 saturation is 95% at this time. Patient reminded to continue incentive spirometer use. Denies any pain or discomforts at this time. No acute distress noted. Personal belongings and call light are within easy reach. Will continue to monitor.
[2021-01-08] MEDS: ENSURE ENLIVE (VAN) 240 ML LIQUID PO SCH (08:00)
[2021-01-08 08:02] VITALS: BP_SYST 122; BP_SYST 54; BP_DIAS 54
[2021-01-08] MEDS: DOCUSATE SODIUM 100 MG CAPSULE PO SCH ×2 (08:42→21:01)
[2021-01-08] MEDS: LABETALOL HCL 100 MG TABLET PO SCH ×2 (08:44→21:02)
[2021-01-08] MEDS: CLONAZEPAM 0.5 MG TABLET PO SCH ×2 (08:45→17:28)
[2021-01-08] MEDS: AMLODIPINE 10 MG TABLET PO SCH ×2 (08:45→21:02)
[2021-01-08] MEDS: FUROSEMIDE 20 MG TABLET PO SCH (08:45)
[2021-01-08] MEDS: ACIDOPHILUS/BULGARICUS CHEW TAB PO SCH ×2 (08:45→17:27)
[2021-01-08] MEDS: ESCITALOPRAM OXALATE 10 MG TABLET PO SCH (08:45)
[2021-01-08] MEDS: GABAPENTIN 300 MG CAPSULE PO SCH (08:45)
[2021-01-08] MEDS: GLIMEPIRIDE 2 MG TABLET PO SCH (08:45)
[2021-01-08] MEDS: hydrALAZINE HCL 50 MG TABLET PO SCH ×3 (08:46→17:29)
[2021-01-08] MEDS: LIDOCAINE 5% PATCH TD SCH (08:47)
--- NOTE | 2021-01-08 14:16 | NUR ---
INTERDISCIPLINARY TEAM CONFERENCE
[2021-01-08 15:39] VITALS: BP 130/62
--- NOTE | 2021-01-08 18:30 | NUR ---
Patient complains of feeling constipated. Last BM on 01/06/21. Suppository administered as ordered. Will continue to monitor.
[2021-01-08 20:05] VITALS: BP 116/48
[2021-01-09 04:15] VITALS: BP 121/51
[2021-01-09] MEDS: APIXABAN 2.5 MG TABLET PO SCH ×2 (05:45→17:35)
[2021-01-09] MEDS: LEVOTHYROXINE SODIUM 50 MCG TABLET PO SCH (05:46)
[2021-01-09] MEDS: PANTOPRAZOLE SODIUM 40 MG TABLET.DR PO SCH (05:46)
--- NOTE | 2021-01-09 06:32 | NUR ---
Shift End Report: VS stable. Slept good. No complaint presented all night. All needs attended and met. No significant event reported. Continue current rehab plan of care.
[2021-01-09 07:39] VITALS: BP 127/52
--- NOTE | 2021-01-09 07:40 | NUR ---
Patient received in bed, alert and oriented x4 and Kenyan speaking. Patient on 1.5L O2 via NC with no SOB or difficulties breathing; O2 saturation is 96% at this time. Patient reminded to continue incentive spirometer use. Denies any pain or discomforts at this time. No acute distress noted. Personal belongings and call light are within easy reach. Will continue to monitor.
[2021-01-09] MEDS: FUROSEMIDE 20 MG TABLET PO SCH (08:18)
[2021-01-09] MEDS: AMLODIPINE 10 MG TABLET PO SCH ×2 (08:18→21:00)
[2021-01-09] MEDS: GLIMEPIRIDE 2 MG TABLET PO SCH (08:18)
[2021-01-09] MEDS: DOCUSATE SODIUM 100 MG CAPSULE PO SCH ×2 (08:18→21:48)
[2021-01-09] MEDS: ESCITALOPRAM OXALATE 10 MG TABLET PO SCH (08:18)
[2021-01-09] MEDS: CLONAZEPAM 0.5 MG TABLET PO SCH ×2 (08:18→17:28)
[2021-01-09] MEDS: ACIDOPHILUS/BULGARICUS CHEW TAB PO SCH ×2 (08:18→17:28)
[2021-01-09] MEDS: LIDOCAINE 5% PATCH TD SCH (08:18)
[2021-01-09] MEDS: LABETALOL HCL 100 MG TABLET PO SCH ×2 (08:19→21:00)
[2021-01-09] MEDS: hydrALAZINE HCL 50 MG TABLET PO SCH ×3 (08:19→17:00)
[2021-01-09] MEDS: ENSURE ENLIVE (VAN) 240 ML LIQUID PO SCH (08:22)
--- NOTE | 2021-01-09 15:26 | NUR ---
INDIVIDUALIZED PLAN OF CARE
[2021-01-09 20:20] VITALS: BP 134/44
[2021-01-09] MEDS: HYDROCODONE/APAP 5-325MG TABLET PO PRN (22:02)
[2021-01-10 04:30] VITALS: BP 136/48
[2021-01-10] MEDS: PANTOPRAZOLE SODIUM 40 MG TABLET.DR PO SCH (06:47)
[2021-01-10] MEDS: LEVOTHYROXINE SODIUM 50 MCG TABLET PO SCH (06:47)
[2021-01-10] MEDS: APIXABAN 2.5 MG TABLET PO SCH ×2 (06:47→17:50)
[2021-01-10 07:45] VITALS: BP 101/62
[2021-01-10] MEDS: ACIDOPHILUS/BULGARICUS CHEW TAB PO SCH ×2 (08:42→17:04)
[2021-01-10] MEDS: DOCUSATE SODIUM 100 MG CAPSULE PO SCH ×2 (08:42→20:48)
[2021-01-10] MEDS: hydrALAZINE HCL 50 MG TABLET PO SCH ×3 (08:43→17:05)
[2021-01-10] MEDS: CLONAZEPAM 0.5 MG TABLET PO SCH ×2 (08:43→17:04)
[2021-01-10] MEDS: LABETALOL HCL 100 MG TABLET PO SCH ×2 (08:43→20:50)
[2021-01-10] MEDS: FUROSEMIDE 20 MG TABLET PO SCH (08:43)
[2021-01-10] MEDS: GLIMEPIRIDE 2 MG TABLET PO SCH (08:44)
[2021-01-10] MEDS: ESCITALOPRAM OXALATE 10 MG TABLET PO SCH (08:44)
[2021-01-10] MEDS: LIDOCAINE 5% PATCH TD SCH (08:44)
[2021-01-10] MEDS: AMLODIPINE 10 MG TABLET PO SCH ×2 (08:44→20:49)
--- NOTE | 2021-01-10 08:49 | NUR ---
RECEIVED PT ALERT AND ORIENTED X4 MEDICATION GIVEN ORDERED NO SIGNS OF ADVERSE REACTION NOTED. PATIENT WAS NOT GIVEN B/P MEDICATION WAS TOO LOW 137/44. PT WAS GIVEN NORCO 5/325 FOR PAIN PT REASSESSED AND WAS ASLEEP WILL CONTINUE TO MONITOR.
[2021-01-10] MEDS: HYDROCODONE/APAP 5-325MG TABLET PO PRN (09:04)
[2021-01-10] MEDS: ENSURE ENLIVE (VAN) 240 ML LIQUID PO SCH (09:49)
[2021-01-10 16:07] VITALS: BP 123/51
[2021-01-10 20:30] VITALS: BP 108/41
[2021-01-11 04:30] VITALS: BP 110/59
[2021-01-11] MEDS: HYDROCODONE/APAP 5-325MG TABLET PO PRN ×2 (04:30→22:23)
[2021-01-11] MEDS: PANTOPRAZOLE SODIUM 40 MG TABLET.DR PO SCH (06:11)
[2021-01-11] MEDS: APIXABAN 2.5 MG TABLET PO SCH ×2 (06:11→17:44)
[2021-01-11] MEDS: LEVOTHYROXINE SODIUM 50 MCG TABLET PO SCH (06:11)
[2021-01-11 07:30] VITALS: BP 101/59
[2021-01-11] MEDS: AMLODIPINE 10 MG TABLET PO SCH ×2 (09:00→20:23)
[2021-01-11] MEDS: hydrALAZINE HCL 50 MG TABLET PO SCH ×3 (09:00→17:00)
[2021-01-11] MEDS: LABETALOL HCL 100 MG TABLET PO SCH ×2 (09:00→20:24)
[2021-01-11] MEDS: GLIMEPIRIDE 2 MG TABLET PO SCH (09:23)
[2021-01-11] MEDS: DOCUSATE SODIUM 100 MG CAPSULE PO SCH ×2 (09:23→20:23)
[2021-01-11] MEDS: ACIDOPHILUS/BULGARICUS CHEW TAB PO SCH ×2 (09:23→16:52)
[2021-01-11] MEDS: FUROSEMIDE 20 MG TABLET PO SCH (09:24)
[2021-01-11] MEDS: ESCITALOPRAM OXALATE 10 MG TABLET PO SCH (09:24)
[2021-01-11] MEDS: ENSURE ENLIVE (VAN) 240 ML LIQUID PO SCH (09:25)
[2021-01-11] MEDS: CLONAZEPAM 0.5 MG TABLET PO SCH ×2 (09:31→16:52)
[2021-01-11] MEDS: LIDOCAINE 5% PATCH TD SCH (09:32)
[2021-01-11 15:10] VITALS: BP 106/52
[2021-01-11 18:18] VITALS: BP 138/45
--- NOTE | 2021-01-11 18:20 | NUR ---
patient in bed sleeping in stable condition. no complains of any SOB, pain or discomfort noted at this time. call light and belongings within reach. will report to oncoming shift.
[2021-01-11 20:00] VITALS: BP 152/65
[2021-01-11 20:45] VITALS: BP 152/65
[2021-01-12 04:00] VITALS: BP 134/53
[2021-01-12 04:30] VITALS: BP 134/53
[2021-01-12] MEDS: LEVOTHYROXINE SODIUM 50 MCG TABLET PO SCH (06:14)
[2021-01-12] MEDS: PANTOPRAZOLE SODIUM 40 MG TABLET.DR PO SCH (06:14)
[2021-01-12] MEDS: APIXABAN 2.5 MG TABLET PO SCH ×2 (06:29→17:30)
[2021-01-12 07:31] VITALS: BP_SYST 155; BP_SYST 158; BP_DIAS 70
[2021-01-12] MEDS: ACIDOPHILUS/BULGARICUS CHEW TAB PO SCH ×2 (08:01→16:20)
[2021-01-12] MEDS: LABETALOL HCL 100 MG TABLET PO SCH ×2 (08:01→20:51)
[2021-01-12] MEDS: DOCUSATE SODIUM 100 MG CAPSULE PO SCH ×2 (08:01→20:39)
[2021-01-12] MEDS: GLIMEPIRIDE 2 MG TABLET PO SCH (08:01)
[2021-01-12] MEDS: FUROSEMIDE 20 MG TABLET PO SCH (08:02)
[2021-01-12] MEDS: LIDOCAINE 5% PATCH TD SCH (08:02)
[2021-01-12] MEDS: CLONAZEPAM 0.5 MG TABLET PO SCH ×2 (08:02→16:20)
[2021-01-12] MEDS: ENSURE ENLIVE (VAN) 240 ML LIQUID PO SCH (08:02)
[2021-01-12] MEDS: ESCITALOPRAM OXALATE 10 MG TABLET PO SCH (08:02)
[2021-01-12] MEDS: hydrALAZINE HCL 50 MG TABLET PO SCH ×3 (08:02→16:21)
[2021-01-12] MEDS: AMLODIPINE 10 MG TABLET PO SCH ×2 (08:02→20:52)
[2021-01-12] MEDS: IPRATROPIUM BROMIDE 0.5 MG/2.5 ML NEBU NEB PRN ×3 (13:07→20:58)
[2021-01-12] MEDS: ALBUTEROL SULFATE 2.5 MG/3 ML NEBU NEB PRN ×3 (13:07→20:58)
[2021-01-12 15:50] VITALS: BP 137/53
[2021-01-12 20:15] VITALS: BP 156/63
[2021-01-13 04:18] VITALS: BP 136/49
[2021-01-13] MEDS: PANTOPRAZOLE SODIUM 40 MG TABLET.DR PO SCH (06:13)
[2021-01-13] MEDS: LEVOTHYROXINE SODIUM 50 MCG TABLET PO SCH (06:13)
[2021-01-13] MEDS: APIXABAN 2.5 MG TABLET PO SCH ×2 (06:13→18:11)
[2021-01-13 06:35] LABS: HEMATOCRIT 31.2 % (31.2-41.9); MEAN CORPUSCULAR VOLUME 78.2 fL (75.5-95.3); PLATELET COUNT (AUTO) 197 K/uL (179-408)
[2021-01-13 06:54] LABS: CREATININE 1.3 mg/dL (0.6-1.3); MAGNESIUM 1.9 mg/dL (1.8-2.4); PHOSPHOROUS 3.7 mg/dL (2.5-4.9); POTASSIUM 4.1 mmol/L (3.5-5.1)
[2021-01-13 07:42] VITALS: BP 130/61
[2021-01-13] MEDS: ACIDOPHILUS/BULGARICUS CHEW TAB PO SCH ×2 (08:10→17:16)
[2021-01-13] MEDS: DOCUSATE SODIUM 100 MG CAPSULE PO SCH ×2 (08:10→20:18)
[2021-01-13] MEDS: LIDOCAINE 5% PATCH TD SCH (08:10)
[2021-01-13] MEDS: GLIMEPIRIDE 2 MG TABLET PO SCH (08:10)
[2021-01-13] MEDS: LABETALOL HCL 100 MG TABLET PO SCH ×2 (08:11→20:49)
[2021-01-13] MEDS: hydrALAZINE HCL 50 MG TABLET PO SCH ×3 (08:11→17:16)
[2021-01-13] MEDS: ESCITALOPRAM OXALATE 10 MG TABLET PO SCH (08:11)
[2021-01-13] MEDS: CLONAZEPAM 0.5 MG TABLET PO SCH ×2 (08:11→17:16)
[2021-01-13] MEDS: FUROSEMIDE 20 MG TABLET PO SCH (08:11)
[2021-01-13] MEDS: AMLODIPINE 10 MG TABLET PO SCH ×2 (08:11→20:50)
[2021-01-13] MEDS: ENSURE ENLIVE (VAN) 240 ML LIQUID PO SCH ×3 (08:12→17:00)
[2021-01-13] MEDS: IPRATROPIUM BROMIDE 0.5 MG/2.5 ML NEBU NEB PRN (12:38)
[2021-01-13] MEDS: ALBUTEROL SULFATE 2.5 MG/3 ML NEBU NEB PRN (12:38)
[2021-01-13] MEDS: HYDROCODONE/APAP 5-325MG TABLET PO PRN (12:54)
[2021-01-13] MEDS ORDERED: FUROSEMIDE 40 MG/4 ML VIAL IV ONE (15:00)
[2021-01-13 15:45] VITALS: BP 121/43
[2021-01-13] MEDS ORDERED: BUMETANIDE INJ 4 MG in IV DEXTROSE 5% 24 ML IV ONE (16:00)
[2021-01-13 20:12] VITALS: BP 133/57
[2021-01-13] MEDS ORDERED: POTASSIUM CHLORIDE 20 MEQ TAB.PRT.SR PO ONE (21:00)
[2021-01-14 04:15] VITALS: BP 112/52
[2021-01-14] MEDS: APIXABAN 2.5 MG TABLET PO SCH ×2 (05:55→17:30)
[2021-01-14] MEDS: PANTOPRAZOLE SODIUM 40 MG TABLET.DR PO SCH (06:03)
[2021-01-14] MEDS: LEVOTHYROXINE SODIUM 50 MCG TABLET PO SCH (06:03)
[2021-01-14 06:48] LABS: MEAN CORPUSCULAR HEMOGLOBIN 25.2 uug (24.7-32.8); MEAN CORPUSCULAR VOLUME 78.2 fL (75.5-95.3); PLATELET COUNT (AUTO) 204 K/uL (179-408)
[2021-01-14 07:17] LABS: CREATININE 1.3 mg/dL (0.6-1.3); PHOSPHOROUS 3.6 mg/dL (2.5-4.9); POTASSIUM 3.8 mmol/L (3.5-5.1)
[2021-01-14] MEDS: ALBUTEROL SULFATE 2.5 MG/3 ML NEBU NEB PRN ×3 (07:43→21:07)
[2021-01-14] MEDS: IPRATROPIUM BROMIDE 0.5 MG/2.5 ML NEBU NEB PRN ×2 (07:43→21:06)
[2021-01-14 08:00] VITALS: BP 113/49
[2021-01-14] MEDS: DOCUSATE SODIUM 100 MG CAPSULE PO SCH ×2 (08:22→20:31)
[2021-01-14] MEDS: LIDOCAINE 5% PATCH TD SCH ×2 (08:22→08:25)
[2021-01-14] MEDS: ACIDOPHILUS/BULGARICUS CHEW TAB PO SCH ×2 (08:22→16:37)
[2021-01-14] MEDS: GLIMEPIRIDE 2 MG TABLET PO SCH (08:22)
[2021-01-14] MEDS: ENSURE ENLIVE (VAN) 240 ML LIQUID PO SCH ×2 (08:24→16:37)
[2021-01-14] MEDS: ESCITALOPRAM OXALATE 10 MG TABLET PO SCH (08:24)
[2021-01-14] MEDS: CLONAZEPAM 0.5 MG TABLET PO SCH ×2 (08:24→16:37)
[2021-01-14] MEDS: FUROSEMIDE 20 MG TABLET PO SCH (08:24)
[2021-01-14] MEDS: LABETALOL HCL 100 MG TABLET PO SCH ×2 (09:53→20:32)
[2021-01-14] MEDS: hydrALAZINE HCL 50 MG TABLET PO SCH ×3 (09:53→16:37)
[2021-01-14] MEDS: AMLODIPINE 10 MG TABLET PO SCH ×2 (09:54→20:32)
[2021-01-14 15:51] VITALS: BP 112/48
[2021-01-14] MEDS ORDERED: FUROSEMIDE 20 MG TABLET PO ONE (16:15)
[2021-01-14 20:00] VITALS: BP 109/62
--- NOTE | 2021-01-14 21:14 | NUR ---
Awake alert and oriented x3-4 forgetful at times. On continous 2L via nasal cannula, pulse Ox 92%. Respiratory treatments given as ordered. Lungs diminished, had some wheezing. Tolerated po meds well. Needs attended. Voiding freely in bedside commode. Will monitor patient. No respiratory distress noted.
[2021-01-15 04:12] VITALS: BP 103/52
[2021-01-15] MEDS: APIXABAN 2.5 MG TABLET PO SCH ×2 (05:48→18:33)
[2021-01-15] MEDS: PANTOPRAZOLE SODIUM 40 MG TABLET.DR PO SCH (06:18)
[2021-01-15] MEDS: LEVOTHYROXINE SODIUM 50 MCG TABLET PO SCH (06:19)
--- NOTE | 2021-01-15 06:39 | NUR ---
End of shift notes: Quiet night. AAOx4 On 2L via nasal cannula. Respiratory treatments given as needed. OOB in bedside commode. Voiding well. Needs attended. No complaints well. VSS.
--- NOTE | 2021-01-15 07:25 | NUR ---
Received alert and oriented language barrier noted but patient able to make needs known through gestures. On O2 at 2 lpm via nc tolerated. No sob noted. No s/sx of pain. Patient assisted with washing her face. Kept comfortable. Bed low and locked. Safety and fall measures maintained.
[2021-01-15 07:50] VITALS: BP 120/60
[2021-01-15] MEDS: ALBUTEROL SULFATE 2.5 MG/3 ML NEBU NEB PRN ×3 (08:09→20:50)
[2021-01-15] MEDS: IPRATROPIUM BROMIDE 0.5 MG/2.5 ML NEBU NEB PRN ×3 (08:09→20:50)
[2021-01-15] MEDS: ESCITALOPRAM OXALATE 10 MG TABLET PO SCH (08:37)
[2021-01-15] MEDS: hydrALAZINE HCL 50 MG TABLET PO SCH ×3 (08:38→17:00)
[2021-01-15] MEDS: ACIDOPHILUS/BULGARICUS CHEW TAB PO SCH ×2 (08:38→17:25)
[2021-01-15] MEDS: FUROSEMIDE 20 MG TABLET PO SCH (08:38)
[2021-01-15] MEDS: DOCUSATE SODIUM 100 MG CAPSULE PO SCH ×2 (08:38→22:47)
[2021-01-15] MEDS: AMLODIPINE 10 MG TABLET PO SCH ×2 (08:39→21:00)
[2021-01-15] MEDS: CLONAZEPAM 0.5 MG TABLET PO SCH ×2 (08:39→17:26)
[2021-01-15] MEDS: LABETALOL HCL 100 MG TABLET PO SCH ×2 (08:39→21:00)
[2021-01-15] MEDS: GLIMEPIRIDE 2 MG TABLET PO SCH (08:39)
[2021-01-15] MEDS: ENSURE ENLIVE (VAN) 240 ML LIQUID PO SCH ×2 (08:40→17:42)
[2021-01-15] MEDS: LIDOCAINE 5% PATCH TD SCH (08:40)
--- NOTE | 2021-01-15 08:45 | NUR ---
Lasix 20mg PO duplicate order not given
[2021-01-15] MEDS ORDERED: FUROSEMIDE 20 MG TABLET PO SCH (09:00)
[2021-01-15 11:57] VITALS: BP 131/53
[2021-01-15 16:09] VITALS: BP 111/54
[2021-01-15] MEDS: HYDROCODONE/APAP 5-325MG TABLET PO PRN (18:34)
--- NOTE | 2021-01-15 18:49 | NUR ---
Patient in bed watching tv. No distress noted. Due meds given and tolerated. Iv remains intact. Safety and fall precautions maintained.
--- NOTE | 2021-01-15 19:00 | NUR ---
RECEIVED REPORT FROM AM NURSE HEBERT PT IS ALERT AND ORIENTED X4 NO SIGNS OF RESPIRATORY DISTRESS NOTED. PT REQUESTED A BREATHING TX AND TO READJUST HER BED WHICH WAS DONE AND RESPIRATORY THERAPIST CAME RIGHT AWAY.
[2021-01-15 20:12] VITALS: BP 115/44
[2021-01-16 00:10] VITALS: BP 103/47
[2021-01-16] MEDS: IPRATROPIUM BROMIDE 0.5 MG/2.5 ML NEBU NEB PRN ×3 (00:48→19:03)
[2021-01-16] MEDS: ALBUTEROL SULFATE 2.5 MG/3 ML NEBU NEB PRN ×3 (00:48→19:02)
[2021-01-16] MEDS: LEVOTHYROXINE SODIUM 50 MCG TABLET PO SCH (06:49)
[2021-01-16] MEDS: APIXABAN 2.5 MG TABLET PO SCH ×2 (06:49→17:47)
[2021-01-16] MEDS: PANTOPRAZOLE SODIUM 40 MG TABLET.DR PO SCH (06:49)
[2021-01-16 08:19] VITALS: BP 110/72
[2021-01-16] MEDS: hydrALAZINE HCL 50 MG TABLET PO SCH ×3 (09:00→16:30)
[2021-01-16] MEDS: AMLODIPINE 10 MG TABLET PO SCH (09:00)
[2021-01-16] MEDS: FUROSEMIDE 20 MG TABLET PO SCH (09:08)
[2021-01-16] MEDS: GLIMEPIRIDE 2 MG TABLET PO SCH (09:08)
[2021-01-16] MEDS: ESCITALOPRAM OXALATE 10 MG TABLET PO SCH (09:09)
[2021-01-16] MEDS: DOCUSATE SODIUM 100 MG CAPSULE PO SCH ×2 (09:09→21:03)
[2021-01-16] MEDS: LABETALOL HCL 100 MG TABLET PO SCH ×2 (09:09→21:00)
[2021-01-16] MEDS: ACIDOPHILUS/BULGARICUS CHEW TAB PO SCH ×2 (09:09→16:26)
[2021-01-16] MEDS: ENSURE ENLIVE (VAN) 240 ML LIQUID PO SCH ×2 (09:10→17:47)
[2021-01-16] MEDS: CLONAZEPAM 0.5 MG TABLET PO SCH ×2 (09:10→16:27)
[2021-01-16] MEDS: LIDOCAINE 5% PATCH TD SCH (09:11)
[2021-01-16] MEDS ORDERED: FUROSEMIDE 20 MG TABLET PO ONE (11:15)
[2021-01-16 15:24] VITALS: BP 98/81
--- NOTE | 2021-01-16 19:01 | NUR ---
The patient is alert/oriented x4. No respiratory distress noted. Denies pain. She is on continuos oxygen at 2LPM via Nasal cannula. Encouraged verbalization of concerns. Kept patient clean, dry, and comfortable. All due meds given. All needs attended. Frequent safety check done. Will continue to monitor for any significant changes. Endorsed to the next shift.
--- NOTE | 2021-01-16 19:20 | NUR ---
Patient report received. Patient seen resting. Awake, alert and oriented x 3. No signs of distress at this time. Increased oxygen flow to 4 Liters nasal cannula to maintain adequate saturation. No shortness of breath reported. No reports of pain at this time. skin intact. Able to ambulate to the restroom with assistance. Plan for D/C tomorrow.
[2021-01-16 20:00] VITALS: BP 106/55
[2021-01-16] MEDS ORDERED: AMLODIPINE 10 MG TABLET PO SCH (21:00)
[2021-01-17 04:00] VITALS: BP 110/57
--- NOTE | 2021-01-17 05:38 | NUR ---
Patient sleeping. No signs of distress. Patient is saturating between 91-94% on 4 L of oxygen. No signs of shortness of breath or labored breathing. No reports of pain at this time. Medications given as ordered. Safety and fall precautions in place. Will endorse to oncoming nurse.
[2021-01-17] MEDS: LEVOTHYROXINE SODIUM 50 MCG TABLET PO SCH (06:08)
[2021-01-17] MEDS: PANTOPRAZOLE SODIUM 40 MG TABLET.DR PO SCH (06:08)
[2021-01-17] MEDS: APIXABAN 2.5 MG TABLET PO SCH (06:12)
[2021-01-17 06:48] LABS: HEMATOCRIT 29.6 % (31.2-41.9); MEAN CORPUSCULAR HEMOGLOBIN 25.3 uug (24.7-32.8); MEAN CORPUSCULAR VOLUME 78.5 fL (75.5-95.3); PLATELET COUNT (AUTO) 259 K/uL (179-408)
[2021-01-17 07:26] LABS: ALANINE AMINOTRANSFERASE 39 U/L (14-59); ALKALINE PHOSPHATASE 134 U/L (50-136); ASPARTATE AMINOTRANSFERASE 27 U/L (15-37); BILIRUBIN,TOTAL 0.7 mg/dL (0.2-1.0); CARBON DIOXIDE 27 mmol/L (21-32); CHLORIDE 105 mmol/L (98-107); CREATININE 1.5 mg/dL (0.6-1.3); MAGNESIUM 2.1 mg/dL (1.8-2.4); PHOSPHOROUS 3.6 mg/dL (2.5-4.9); POTASSIUM 3.6 mmol/L (3.5-5.1); TOTAL PROTEIN, SERUM 5.7 g/dL (6.4-8.2); UREA NITROGEN, BLOOD 18 mg/dL (7-18)
[2021-01-17 07:36] LABS: GLUCOSE 49 mg/dL (74-106)
--- NOTE | 2021-01-17 07:40 | NUR ---
Charge nurse received a call from the laboratory that patient blood sugar level is critically low at 49mg/dL. Rechecked and it was 55mg/dL. Offered patient juice and milk but she refused to take it. She stated she is going home and will take her medications once home. No signs of distress noted at this time. She is sitting on her bed, denies discomfort. Frequent checks will be done and will continue to monitor patient for any significant changes.
[2021-01-17 08:25] VITALS: BP 122/53
[2021-01-17] MEDS: LABETALOL HCL 100 MG TABLET PO SCH (08:54)
[2021-01-17] MEDS: DOCUSATE SODIUM 100 MG CAPSULE PO SCH (08:54)
[2021-01-17 08:55] VITALS: BP 122/53
[2021-01-17] MEDS: ACIDOPHILUS/BULGARICUS CHEW TAB PO SCH (08:55)
[2021-01-17] MEDS: CLONAZEPAM 0.5 MG TABLET PO SCH (08:55)
[2021-01-17] MEDS: ESCITALOPRAM OXALATE 10 MG TABLET PO SCH (08:55)
[2021-01-17] MEDS: FUROSEMIDE 20 MG TABLET PO SCH (08:56)
[2021-01-17] MEDS: ENSURE ENLIVE (VAN) 240 ML LIQUID PO SCH (08:56)
[2021-01-17] MEDS: GLIMEPIRIDE 2 MG TABLET PO SCH (08:56)
[2021-01-17] MEDS: LIDOCAINE 5% PATCH TD SCH (08:56)
[2021-01-17] MEDS ORDERED: hydrALAZINE HCL 50 MG TABLET PO SCH (09:00)
[2021-01-17] MEDS ORDERED: FURO-151 PO (11:06)
[2021-01-17] MEDS ORDERED: HYDR-4209 PO (11:06)
[2021-01-17] MEDS ORDERED: APIXABAN 5 MG TABLET PO SCH (21:00)
--- NOTE | 2021-01-18 10:33 | NUR ---
INTERDISCIPLINARY TEAM CONFERENCE
== END 2021-01-17 16:13 | disposition home health service (06) | DRG 189 ==
PROVIDERS: ADMIT Physical Medicine & Rehabilitation Pain Medicine; ATTEND Physical Medicine & Rehabilitation Pain Medicine
DX: J96.21 Acute and chronic respiratory failure with hypoxia (principal); E43 Unspecified severe protein-calorie malnutrition; G92 Toxic encephalopathy; I50.33 Acute on chronic diastolic (congestive) heart failure; N17.0 Acute kidney failure with tubular necrosis; I13.0 Hypertensive heart and chronic kidney disease with heart failure and stage 1 through stage 4 chronic kidney disease, or unspecified chronic kidney disease; N17.9 Acute kidney failure, unspecified; D68.59 Other primary thrombophilia; E87.2 Acidosis; E11.22 Type 2 diabetes mellitus with diabetic chronic kidney disease; E78.5 Hyperlipidemia, unspecified; I25.10 Atherosclerotic heart disease of native coronary artery without angina pectoris; I27.20 Pulmonary hypertension, unspecified; N18.9 Chronic kidney disease, unspecified; Z20.822 Contact with and (suspected) exposure to COVID-19; S22.42XD Multiple fractures of ribs, left side, subsequent encounter for fracture with routine healing; W18.30XD Fall on same level, unspecified, subsequent encounter; D25.9 Leiomyoma of uterus, unspecified; E03.9 Hypothyroidism, unspecified; E27.8 Other specified disorders of adrenal gland; E86.1 Hypovolemia; F32.9 Major depressive disorder, single episode, unspecified; G31.84 Mild cognitive impairment of uncertain or unknown etiology; G62.9 Polyneuropathy, unspecified; G89.29 Other chronic pain; I07.1 Rheumatic tricuspid insufficiency; I48.0 Paroxysmal atrial fibrillation; K59.09 Other constipation; M19.90 Unspecified osteoarthritis, unspecified site; M75.31 Calcific tendinitis of right shoulder; Z87.440 Personal history of urinary (tract) infections; R29.6 Repeated falls; Z79.01 Long term (current) use of anticoagulants; Z91.81 History of falling; Z99.81 Dependence on supplemental oxygen; E66.9 Obesity, unspecified; M54.2 Cervicalgia; M54.9 Dorsalgia, unspecified; R00.1 Bradycardia, unspecified; R26.81 Unsteadiness on feet; J44.9 Chronic obstructive pulmonary disease, unspecified
CPT/HCPCS: 36415; 71045; 72100; 83735; 84100; 85025; 94640; 94664; J1940; J3490; J3590; J7060